=== PATIENT | female | born 1950 | race Caucasian/White ===

== ENCOUNTER → 2019-12-15 06:48 | Outpatient (CLI) | payer OTHER, SELFPAY ==
--- NOTE | ~2019-12-15 | MR_ITS ---
EXAMINATION: MR lumbar spine wo [facility] EXAM DATE: 12/15/2019 07:41 INDICATION: Low back pain, left groin, leg pain. TECHNIQUE: Multi-sequential, multiplanar MR images of the lumbar spine were obtained without contrast . Sagittal T1, T2, T2 fat saturation images. Axial T2 weighted images. There is no prior study for comparison. FINDINGS: There is moderate to severe disc disease at L3-4, which appears to be the level at which mi ld to moderate lumbar levoscoliosis centered, with mild compression fractures of the right side of th rolan 2 vertebral bodies. There is moderate disc disease L2-3, L4-5 and L5-S1. The vertebral bodies are aligned in the AP dimension. The conus medullaris terminates at the L1/2 level and has normal signal intensity and morphology. There are no suspicious marrow signal abnormalities. Level by level evaluation: T12-L1: Disc does not extend beyond the endplate margin. Facet arthropathy: Mild. Neural foraminal stenosis: No stenosis. Central canal stenosis: No stenosis. L1-L2: Disc does not extend beyond the endplate margin. Facet arthropathy: Mild. Neural foraminal stenosis: No stenosis. Central canal stenosis: No stenosis. L2-L3: There is a moderate diffuse disc bulge. Facet arthropathy: Mild to moderate . Ligamentum flavum enlargement. Neural foraminal stenosis: Mild to moderate right, mild left. Central canal stenosis: Mild to moderate. L3-L4: There is a moderate diffuse disc bulge. Facet arthropathy: Moderate . Ligamentum flavum enlargement. Neural foraminal stenosis: Moderate right, mild left. Central canal stenosis: Moderate to severe. L4-L5: There is a mild to moderate diffuse disc bulge. Facet arthropathy: Mild to moderate. Neural foraminal stenosis: Moderate to severe left, mild to moderate right. Central canal stenosis: Moderate. L5-S1: There is a mild to moderate diffuse disc bulge. Facet arthropathy: Mild. Neural foraminal stenosis: Moderate to severe left, moderate right. Central canal stenosis: No stenosis. IMPRESSION: 1. Mild to moderate lumbar levoscoliosis centered at L3-4 with mild compression fractures of these v ertebral bodies, mild bone marrow edema. 2. L3-4 moderate to severe central canal stenosis. 3. Left L3-4 and L4-5 moderate to severe neural foraminal stenosis. 4. Lesser spondylosis above. Reviewed, dictated and finalized at location B. FOLDER IMPRESSION: 1. Mild to moderate lumbar levoscoliosis centered at L3-4 with mild compressio n fractures of these vertebral bodies, mild bone marrow edema. 2. L3-4 moderate to severe central canal stenosis. 3. Left L3-4 and L4-5 moderate to severe neural foraminal stenosis. 4. Lesser spondylosis above.
== END ==
PROVIDERS: Visit Provider Physician Assistant
DX: M47.26 Other spondylosis with radiculopathy, lumbar region (principal); M99.73 Connective tissue and disc stenosis of intervertebral foramina of lumbar region
CPT/HCPCS: 72148

== ENCOUNTER → 2023-08-22 09:54 | Outpatient (CLI) | payer MEDICARE, OTHER, SELFPAY ==
--- NOTE | ~2023-08-22 | MR_ITS ---
EXAMINATION: MR lumbar spine wo con DATE: 08/22/2023 11:17 INDICATION: Low back pain. Bilateral leg pain. TECHNIQUE: Magnetic resonance imaging (MRI) of the lumbar spine was performed without intravenous con trast. COMPARISON: Lumbar spine MRI 12/15/2019 FINDINGS: There is 14 degrees levoscoliosis of lumbar spine. There is 3 mm retrolisthesis of L4 on L5 and 4 mm anterolisthesis of L5 on S1. There are chronic bilateral L5 pars defects. Vertebral body he ights are normal. There is severely decreased disc height at L2-L3, L3-L4, and L4-L5 and moderately d ecreased disc at L5-S1. The distal spinal cord signal intensity is normal. The conus medullaris is at T12-L1. The following disc levels are specifically discussed: L1-L2: The disc does not extend beyond the endplate margin. There is moderate bilateral facet joint o steoarthritis. There is no neural foraminal stenosis. There is no central canal stenosis. L2-L3: The disc is bulging and has an annular fissure. There is mild bilateral facet joint osteoarthr itis. There is mild bilateral neural foraminal stenosis. There is mild central canal stenosis with po sterior decompression. L3-L4: The disc is bulging and has an annular fissure. There is severe left facet joint osteoarthriti s. There is moderate right and mild left neural foraminal stenosis. There is mild central canal steno sis with posterior decompression. L4-L5: The disc is bulging with superimposed right central extrusion. There is severe bilateral facet joint osteoarthritis. There is moderate bilateral neural foraminal stenosis. There is mild central c anal stenosis with posterior decompression. L5-S1: The disc is bulging. There is moderate right and severe left facet joint osteoarthritis. There is mild right and moderate left neural foraminal stenosis. There is mild central canal stenosis. IMPRESSION: 1. Severe lumbar spondylosis with interval posterior decompression. 2. Chronic bilateral L5 pars defects with grade 1 anterolisthesis of L5 on S1. 3. Lumbar levoscoliosis. Reviewed, dictated and finalized at location E.
== END ==
PROVIDERS: PCP Internal Medicine; Visit Provider Internal Medicine
DX: M54.50 Low back pain, unspecified (principal); M43.17 Spondylolisthesis, lumbosacral region; M41.86 Other forms of scoliosis, lumbar region
CPT/HCPCS: 72148

== ENCOUNTER 2024-10-07 07:02 | Outpatient (CLI) | payer MEDICARE, OTHER, SELFPAY ==
--- NOTE | ~2024-10-07 | MR_ITS ---
MRI of the lumbar spine Clinical History: Radiculopathy Technique: Axial T2-weighted images, and sagittal T1-weighted, T2-weighted, and and T2 fat-sat images were acquired. COMPARISON: 08/22/2023 Findings: No acute fracture or subluxation seen in the lumbar spine. Osseous alignment is stable from prior exam. There are stable reactive marrow changes most notably involving the L3, L4, L5 vertebral bodies related to underlying degenerative disc disease. No suspicious bone marrow signal abnormality seen. At L1-L2, there is no disc bulge or herniation. There is advanced facet arthropathy. No central canal stenosis or definite neural foraminal narrowing. At L2-L3, there is advanced disc 9. There is disc bulge with advanced facet arthropathy. There is watson or posterior decompression/laminectomy. No spinal canal stenosis. There is mild to moderate bilateral neural foraminal narrowing. At L3-L4, there is severe degenerative disc narrowing. There is mild disc bulge. There is prior poste rior decompression. No central canal stenosis. There is severe right neural foraminal narrowing and m oderate to severe left neural foraminal narrowing. At L4-L5, there is moderate degenerative distended with diffuse disc bulge. There is prior posterior decompression/laminectomy. No central canal stenosis. There is severe left neural foraminal narrowing , and moderate to severe right neural foraminal narrowing. At L5-S1, there is disc bulge and prior posterior decompression. No central canal stenosis. There is severe bilateral neural foraminal narrowing. Paravertebral soft tissues are unremarkable, aside from expected postoperative change. Impression: Prior posterior decompression from L2 through L5. Advanced degenerative spondylosis otherwise, with multilevel neural foraminal narrowing and degenerat corie disc narrowing, as detailed above. Reviewed, dictated and finalized at [facility] Impression: Prior posterior decompression from L2 through L5. Advanced degenerative spondylosis otherwise, with multilevel neural foraminal n arrowing and degenerative disc narrowing, as detailed above.
== END 2024-10-07 07:03 | disposition home or self-care (01) ==
PROVIDERS: PCP Internal Medicine
DX: M43.16 Spondylolisthesis, lumbar region (principal); M47.816 Spondylosis without myelopathy or radiculopathy, lumbar region
CPT/HCPCS: 72148